=== PATIENT | female | born 1965 | race Caucasian/White ===

== ENCOUNTER 2021-06-27 10:20 | Inpatient (IN) | payer OTHER ==
[~2021-06-27] VITALS: Ht 160 cm; Wt 112.5 kg
--- NOTE | ~2021-06-27 | OR ---
[facility] [address], [place] [address] Draft DATE OF OPERATION: 06/27/2021 SURGEON: Sparkle Santana MD PREOPERATIVE DIAGNOSES: 1. Generalized peritonitis and small bowel obstruction. 2. Morbid obesity and history of bariatric procedure 1983. POSTOPERATIVE DIAGNOSES: 1. Generalized abdominal peritonitis with inflammatory fluid and without obvious discrete small bowel obstruction. A small web of segment of small bowel likely related to incomplete obstructive changes. 2. Upper abdominal adhesions and upper abdominal inflammatory fluid changes; no evidence of perforated viscus. 3. Chronic and subacute cholecystitis. 4. Chronic appendicitis. PROCEDURES: 1. Exploratory laparotomy with lysis of upper abdominal adhesions and full evaluation of upper gastrointestinal tract for perforation. 2. Open cholecystectomy. 3. Segmental small bowel resection with end-to-end enteroenterostomy. 4. Appendectomy. 5. Peritoneal lavage with placement of drain. ANESTHESIA: General endotracheal, Uche Kothari CRNA. PREPRESS OPERATOR: Yesenia Schumacher RN. INDICATION: This 56-year-old morbidly obese, white woman presented to the emergency room late in the day and evaluated by Dr. Mcghee with severe abdominal pain dominantly located in the epigastric area. She initially was thought to have cholecystitis. A gallbladder ultrasound was performed, which did not show stones or obvious thickening. Notably, she had a bariatric operation in 1983, which was initially reported as a Teja-en-Y gastric bypass and later thought more likely to be a vertical banded gastroplasty. This was by Dr. Konstantin Moncada in [facility]. PATIENT NAME: CARL ACEVEDO OPERATIVE REPORT DATE OF : 69 REPORT #: [id number] PHYSICIAN: SPARKLE SANTANA MD PCP: OTHER PCP REPORT IS CONFIDENTIAL AND NOT TO BE RELEASED WITHOUT AUTHORIZATION [facility] [address], [place] [address] Draft Her evaluation showed a slightly elevated alkaline phosphatase, normal liver enzymes otherwise and white count elevated at 12.6. Clinical examination shows her to be generally tender throughout. A CT scan was performed, which showed numerous clips in the GE junction area and no evidence of Teja limb to suggest gastric bypass proper. She did have dilated loops of small bowel highly suggestive of small bowel obstruction and peritoneal fluid dominantly in the upper abdomen. On the basis of these findings and the ambiguity of her previous bariatric operation, I have recommended exploration without delay on the possibility of a closed loop obstruction if in fact she does have a bariatric procedure at risk for that. She and her family (mother and sister) understands the risks of bleeding, infection, need for other indicated procedures, and other unforeseen complications related to operation and wished to proceed. FINDINGS: Upon opening of the midline laparotomy incision, considerable amount of inflammatory fluid was noted. There was no sign of bile staining per se, and there was no adverse odor, but marked inflammatory fluid was noted. Cultures were obtained. The Gram stain was stat and was reported as no organisms. Inflammatory fluid was noted throughout the abdomen, particularly in the upper abdomen. Exploration of the upper aspect defined the anatomy most likely consistent with vertical banded gastroplasty after all. Dense adhesions in the lesser sac area were noted. The stomach was able to be evaluated reasonably well in the GE junction area. There was no sign of esophageal or proximal gastric perforation, though initially I thought most probable finding would be perforated ulcer of some type. The duodenum was evaluated and found to be without sign of perforation. Insufflation of the stomach through the nasogastric tube submerged in saline showed no sign of air leak bubble or other issue. She had an acutely inflamed gallbladder, which was excised and when open, showed fine bits of cholesterol debris adherent to the gallbladder wall. Cholangiogram was not performed. The liver itself was normal. The small bowel was run from the ligament of Treitz to the terminal ileum, had no sign of perforation, but did have a constricting web in the distal two-thirds, which was durable over time and on that basis was resected. Once opened, it did not have sign of actual neoplasm proper. Palpation of the pelvic organs showed a somewhat atretic uterus. No sign of adnexal mass. The colon was normal throughout. The terminal ileum was normal. The appendix had chronic inflammatory change possibly secondary to the inflammatory process within the abdomen and appendectomy was performed as well. DESCRIPTION OF PROCEDURE: The patient was brought to the operating room, given a general endotracheal anesthetic. Preoperative antibiotic, meropenem had been given. Sequential compression device stockings used and heparin subcutaneously administered. A Zapata catheter was placed. PATIENT NAME: CARL ACEVEDO OPERATIVE REPORT DATE OF : 69 REPORT #: [id number] PHYSICIAN: SPARKLE SANTANA MD PCP: OTHER PCP REPORT IS CONFIDENTIAL AND NOT TO BE RELEASED WITHOUT AUTHORIZATION [facility] [address], [place] [address] Draft The abdomen was prepared with a chlorhexidine solution and draped sterilely. The previous upper midline incision was incised. Dissection carried through obese abdominal pannus encountering the midline fascia, which was incised and the abdomen entered. Immediately noted was a considerable amount of turbid and inflammatory fluid. Swabs were taken for both aerobes and anaerobes and stat Gram stain. The stat Gram stain later showed no evidence of organisms. The omentum was somewhat adherent to the anterior abdominal wall, was taken down with meticulous electrocautery dissection allowing for entry to the abdomen. The small bowel was eviscerated from the ligament of Treitz to the terminal ilium showing no sign of transition point of obstruction. The proximal bowel was somewhat more dilated. It was later to be more fully examined. The upper abdomen had the most inflammatory fluid, although was not bilious in color. Concern was maintained this may represent perforated ulcer. Examination of the lesser sac showed fusion of the left lateral segment of liver over the stomach itself. A nasogastric tube was in place. The fused liver was freed from the lesser sac of this stomach largely, but was so dense infused. It was deemed unlikely that a perforated ulcer would manifest in this way. Examination beneath the transverse mesocolon showed no sign of abscess or problem in this area. Attention was turned towards the right side of the abdomen in the upper aspect. The duodenum was identified and found to have no sign of perforation. The gallbladder was somewhat adherent to surrounding structures and although not severely acutely inflamed, was chronically inflamed, was dissected free from the surrounding tissue. A Bookwalter retractor was affixed to the table to allow for self-retention. The round ligament was freed from the anterior abdominal wall. The liver was palpably normal. Inflammatory fluid around it was suctioned free. It became clear that the original diagnosis of small bowel obstruction was certainly not the case. Careful inspection of the upper GI tract showed no sign of actual ulcer or enteric leakage. The nasogastric tube was manipulated into place and insufflated with air with the upper abdomen submerged in saline. Showed nice sign of air leak or bubble or other problem. Notably, the fundus of the stomach was free from the upper aspect and the spleen was normal as well. The lower aspect of the esophagus could easily be palpated and examined and showed no sign of perforation nor did the proximal stomach. It was deemed advisable to do cholecystectomy as that might be the underlying source of her distress. A ring clamp was applied to the gallbladder and the gallbladder was dissected free from the liver with electrocautery. The infundibulum as well dissected free. The cystic duct was secured with a tonsil clamp and secured with 0 silk tie. The gallbladder was opened on the back table and found to have chronic inflammatory changes and gallbladder debris. There were no well-formed stones, however. PATIENT NAME: CARL ACEVEDO OPERATIVE REPORT DATE OF : 69 REPORT #: [id number] PHYSICIAN: SPARKLE SANTANA MD PCP: OTHER PCP REPORT IS CONFIDENTIAL AND NOT TO BE RELEASED WITHOUT AUTHORIZATION [facility] [address], [place] [address] Draft Irrigation was undertaken and attention turned towards the small bowel. The small bowel was run from the ligament of Treitz distalward to assess for occult perforation or other similar problem in the distal two-thirds of the bowel with a circumferential thickening of the bowel. This did have some proximal dilation associated with it. This area was marked with a suture to be examined later. Further examination downstream from this showed minimal amount of creeping fat in one area, but no sign of inflammatory bowel disease otherwise. The terminal ileum was identified by the antimesenteric fat pad of tree. This allowed for delivery of a relatively mobile cecum. There was no sign of palpable lesion in the cecum or right colon. The appendix appeared to have inflammatory change, probably secondary to the underlying process. Appendectomy was performed by securing the mesentery of the appendix, dividing it and securing it with 0 silk tie. The base of the appendix was crushed and milked distally and the crush dayton secured with a 3-0 Vicryl tie. The appendix was amputated. The stump cauterized and inverted with a Z-stitch of 3-0 silk suture. Irrigation was undertaken throughout the abdominal cavity with warm irrigation fluid. Further inspection was undertaken showing no other abnormalities could be identified. Through a left upper quadrant stab incision, a 7 mm flat Rafi drain was placed into the upper abdomen extending from the left subhepatic space extending across the lesser sac and near the area of prior excision of the gallbladder. Pelvic examination by palpation revealed somewhat atretic uterus and no evidence of adnexal structure of concern. The sigmoid did not appear to be inflamed particularly. There was no neoplasm within it. Irrigation was undertaken more fully. The omentum replaced over the abdominal contents and attention turned towards closure. The midline fascia was reapproximated with running bidirectional #1 PDS suture. The subcutaneous space was irrigated and the skin closed with running subcuticular 3-0 Vicryl. Steri-Strips were applied as was an Acticoat dressing. Drains attached to bulb suction. The patient tolerated the procedure well. Blood loss was less than 100. Sponge, needle, and instrument counts reported as correct x3. MD MINDA Batista/JANAY /[id number] PATIENT NAME: CARL ACEVEDO Liz OPERATIVE REPORT DATE OF : 69 REPORT #: [id number] PHYSICIAN: SPARKLE SANTANA MD PCP: OTHER PCP REPORT IS CONFIDENTIAL AND NOT TO BE RELEASED WITHOUT AUTHORIZATION [address] [place] [address] Draft cc: Dr. Taz Copies: ~ PATIENT NAME: CARL ACEVEDO OPERATIVE REPORT DATE OF : 69 REPORT #: [id number] PHYSICIAN: SPARKLE SANTANA MD PCP: OTHER PCP REPORT IS CONFIDENTIAL AND NOT TO BE RELEASED WITHOUT AUTHORIZATION
[2021-06-27] MEDS ORDERED: TOPIRAMATE25 MG PO (10:44)
[2021-06-27] MEDS ORDERED: OMEPRAZOLE40 MG PO (10:44)
--- NOTE | 2021-06-27 21:55 | NUR ---
Pt arrived via bed from PACU, drowsy, opens eyes and nods to questions. On 2LNC not chronic, post op, L NGT patent w scant amount of reddish/brown discharge. to ILWS, abd large R abd Opticot dressing, MARY w sanguineous drainage. TERA.F?C in place. emptied right before being transferred to Med surg floor. not chronic SCDS in place. warm blanket given. IVF started. Family in room
--- NOTE | 2021-06-27 22:11 | NUR ---
06/27/212210 DEEDEE CALDERON 2036 PATIENT INTO PACU, AIRWAY IN PLACE 10 L MASK, PATIENT BREATHING EVEN AND REGULAR. MIDLINE SURGICAL SITE, STERI STRIPS AND ACTICOAT IN PLACE, C/D/I. MARY DRAIN TO UPPER LEFT QUADRANT, APPERS TO HAVE RED OUTPUT. 2044 PATIENT OPENS EYES TO VERBAL STIMULI, PATIENT ABLE TO SELF REMOVE ORAL AIRWAY. AWAKE ON AND OFF, TITRATED OXYGEN TO 4L MASK. PATIENT ATTEMPTING TO RUB EYES, REDIRECTED HANDS. 2049 PATIENT AWAKE ON AND OFF, TITRATED TO ROOM AIR. KEPT ENCOURAGEING PATIENT TO COUGH AND DEEP BREATHE. OXYGEN SATURATION APPEARS TO DECREASE TO 89% WHEN SNORING. APPLIED 2L NC OXYGEN SATURATION INCREASED TO 98% PATIENT BREATHING REGULAR AND EVEN RR 16. PATIENT APPEARS DROWSY. PATIENT VERBALIZES NO PAIN OR NAUSEA. DRESSING C/D/I. 2109 PATIENT APPEARS DROWSY, SATURATION 98% ON 2L NC. DRESSING C/D/I EMPTIED 20 ML OF RED OUTPUT FROM MARY. DRAINED 50 ML OF CLEAR YELLOW URINE FROM KIMBALL CATHETER. 2119 PATIENT TRANSFERED IN MEDICAL BED TO MED-SURG ROOM 122 PROVIDED REPORT TO HAL RN. PATIENT AWAKE ON AND OFF. AWAKES EASILY TO VERBAL STIMULI, PATIENT REPORTS NO PAIN OR NAUSEA. VSS WNL. DRESSING TO MIDLINE INCISION C/S/I. 2L NC, CONTINUIOUS [address] ANSWERED ALL QUESTIONS AND CONCERNS. HAL TO RESUME CARE.
--- NOTE | 2021-06-27 22:15 | NUR ---
PT CALL LIGHT ON, PT FAMILY LEFT THIS ENGINEERING TECHNICAL SPECIALIST PT WAS NAUSOUS, IN TO CHECK ON PT, LET THEM KNOW THE RN WAS CHECKING THE eMAR, SET OF POST OP VS DONE WITH RN
--- NOTE | 2021-06-27 22:36 | NUR ---
Pt more awake, o2 2lnc. LNGT to LIWS, draining scant amont of red/brown colored. abd R side dressing intact, MARY w sanguineous scant drainage. f/c patent.
--- NOTE | 2021-06-27 23:25 | NUR ---
more awake, NGT patent, abd dressing w/o changes, shakila patent. f/c patent, scds in place. NPO, oral care done. Merren infusing w/o problems O2 2L post op, CPOX at bedside
--- NOTE | 2021-06-28 00:36 | NUR ---
AWAKES EASILY, NO C/OPAIN OR N/V. ON 2L O2 NC, POST OP, WILL DC IN AM. CPOX AT BEDSIDE PER POST OP, L NGT PATENT TO LIWS, DRAINING DARKRED/BROWN. ABD TENDER, NOT PASSING GAS. F/C DRAINING SMALL AMOUNTS OF CLEAR URINE. SCDS INPLACE, IVF INFUSING W/O PROBLEMS.
--- NOTE | 2021-06-28 00:50 | NUR ---
PT C/O 7/10 ABD PAIN, AWAKE, ALERT AND ORIENTED. MEDICTED WITH DILAUDID 0.5MG IV. MOUTH CARE DONE.
--- NOTE | 2021-06-28 02:00 | NUR ---
IN TO ASSIST RN WITH 2AM VITALS, KIMBALL EMPTIED, LIZTHER HAS ARRIVED TO PTs RM, NO FURTHER NEEDS AT THIS TIME
--- NOTE | 2021-06-28 02:30 | NUR ---
C/O FEELING NAUSEATED, MEDICATED WITH PHENERGAN 12.5MG IV. FAMILY AT BEDSIDE
--- NOTE | 2021-06-28 06:14 | NUR ---
Pt out to edge of bed, stood up and walked a few steps toward the HOB, tolerated well, was medicated prior to. O2 weaned off, on room air at this time, lungs clear dim at bases. LNGT patent to LIWS, draining small amount of brown/green colored drainage.distant TERA, not passing gas yet, not burping. R abd opticot in place, MARY with ss drainage. f/c patent, draining QS urine, SCDs in place. Was medicated 2X with Dilaudid 0.5mg IV per abd pain, effective, medicated with Phenergan 12.5mg IV per c/o n/w, no emesis, effective. helped with assessments, alert and oriented, family in room
--- NOTE | 2021-06-28 06:32 | NUR ---
pt ok to give report to mother, report given to mother Karen.
--- NOTE | 2021-06-28 07:29 | NUR ---
report recieved from [employer] food shift supervisor RN, pt resting in bed, call light within reach, ng to low intermitten suction, room air, cpox on at bedside 97% on room air respirations evene and nonlabored, incision cdi, no needs at the moment
--- NOTE | 2021-06-28 09:15 | NUR ---
RN in room to do morning assessment and meciations, pt awake and alert, on room air, states pain is 6/10 prn IV tylenol administered,incision CDI, abd soft non distended, education provided on IS, dr Blackburn stopped in pt room ok to have ice chips, NG remains intact to low intermitten suction , plan to get up to chair post pain medications. call light within reach , no other needs at the moment.
--- NOTE | 2021-06-28 10:13 | NUR ---
VITALS AND I&OS CHARTED. NG IN PLACE. KIMBALL AND MARY EMPTIED. PATIENT AMBULATED SUMMERS WITH RN AND STUDENT. LINENS CHANGED AND PATINET NOW UP IN CHAIR. DAUGHTER IN ROOM.
--- NOTE | 2021-06-28 10:18 | NUR ---
PT ABLE TO AMBULATE IN SUMMERS, WALKED DOWN THE SUMMERS AND BACK TOLERATED WELL, SITTING UP ON CHAIR, SCDS BACK IN PLACE NO OTHER NEEDS AT THE MOMENT
--- NOTE | 2021-06-28 12:25 | NUR ---
RN IN ROOM TO ROUND ON PT, SITTING UP IN THE CHAIR, COMPLAINGING OF PAIN /10, PRN DILAUDID PROVIDED,IV RATE CHANGED PER ORDER, REQUESTING TO GO ON ANOTHER WALK AFTER PAIN MEDS KICK IN. N
--- NOTE | 2021-06-28 12:45 | NUR ---
PT ABLE TO AMBULATE IN SUMMERS FULL LAP AROUND UNIT, SBA, TOLERATED WEEL. REQUEST TO LAY IN BED FOR A LITTLE ASSISTED BACK TO BED NO OTHER NEEDS.
--- NOTE | 2021-06-28 13:51 | NUR ---
PATIENT AWAKE IN BED, FAMILY IN ROOM. VITALS AND I&OS CHARTED. KIMBALL AND MARY EMPTIED. CALL LIGHT IN EASY REACH, NO OTHER NEEDS AT THIS TIME
--- NOTE | 2021-06-28 14:32 | NUR ---
RN IN ROOM TO DO IV ABX, PT RESTING IN BED, NO NEEDS AT THE MOMENT, DRESSING ON INCISION REMAINS INTACT, NO GAS PASSING REPORTED BY PT.
--- NOTE | 2021-06-28 16:23 | NUR ---
Arnav got out of bed to ambulate, arnav walked 1 short round around the [facility] adelina unit.
--- NOTE | 2021-06-28 18:00 | NUR ---
RN IN ROOM RO ADMINISTER PAIN MEDICATIONS STATES PAIN 09/29, I&OS DONE, 250 ML OUT OF NG 2 CUPS OF ICE CHIPS GIVEN, KIMBALL EMPTIED AND MARY DRAIN 10CC. NO OTHER NEEDS
--- NOTE | 2021-06-28 20:42 | NUR ---
PT AWAKE, HOB ELEVATED, LNARE NGT PATENT DRAINING BROWNISH DISCHARGE. ABD SOFT, TENDER TERA, R ABD OPTICOT IN PLACE, MARY POTENT W SS DRAINAGE. IVF INFUSING LAC, ELEVATED WITH PILLOWS, BRUISING HEALING. SCDS ON, L ANKLE 1+ EDEMA, ELEVATED, ALERT AND ORINETED, C.O ABD PAIN, MEDICATED IWTH DILAUDID 0.5MG, COOP
--- NOTE | 2021-06-28 20:50 | NUR ---
in to get i&os, quinones emptied, no further needs
--- NOTE | 2021-06-28 22:24 | NUR ---
CEPACOL ANAILSA GIVEN
--- NOTE | 2021-06-29 00:10 | NUR ---
C/O LALY IV SITE HURTING. IV STOPPED, MERREN INFUSING. IV DC'D, WARM COMPRESS STARTED. COOPERATIVE WITH RESTARTING ANOTHER IV SITE. L NARE NGT TO LIWS DRAINING BROWNIGH THICK DRAINAGE. MARY PATENT. DRESSING R ABD , F/C PATENT, SCDS IN PLACE. NO C/O PAIN AT THIS TIME
--- NOTE | 2021-06-29 03:45 | NUR ---
resting, hob elevated ngt , f/c patent. ivf infusing. scds in place, ice chips at bedside
--- NOTE | 2021-06-29 04:10 | NUR ---
iv pump alarming, in to get vs, quinones emptied, rn in rm, no further needs at this time
--- NOTE | 2021-06-29 04:18 | NUR ---
medicated with Dilaudid 0.5mg c/o abd pain. lozengers for sore throat. ngt patent, ivf infusing, f/c patent, scds on
--- NOTE | 2021-06-29 04:43 | NUR ---
PT ON ROOM AIR, LUNGS CLEAR, L NARE NGT PATENT DRAINING BROWN COLORED THICK DRAINAGE. ABD SOFT TERA, PATRICK PASSING GAS. R ABD VERTICAL OPTICOT DRESSING IN PLACE, MARY MID LOW ABD WITH OLD DRAINAGE. PATENT DRAINING SS DRAINAGE. F/C PATENT, DRAINING CLEAR YELLOW URINE. SCDS IN PLACE, IV INFILTRATED LALY RESTARTED R ARM, IVF INFUSING W/O PROBLEMS, NO C/OA DVERSE REACTION TO IV ABX. HAS BEEN MEDICATED WITH DILAUDID 0.5MG 3X PER ABD PAIN, AND CEPACOL LOZENGERS PER C/O SORE THROAT, EFFECTIVE, HELPED WITH REPOSITIONING IN BED. PLEASANT AND COOPERATIVE. TOLERATING ICE CHIPS, NO EMESIS
--- NOTE | 2021-06-29 05:46 | NUR ---
PT C/O ABD PAIN 09/29, MEDICATED WITH DILAUDID 0.5MG IV
--- NOTE | 2021-06-29 07:24 | NUR ---
Patient awake resting in bed, no distress. Patient reports he slept well last night. Zapata intact/patent, urine sammie colored. Patient denies needs at this time. Personal supplies and call light within reach.
--- NOTE | 2021-06-29 07:36 | NUR ---
Patient in bed awake, no distress. NG to LIWS, scant light brown drainage noted in tubing. Patient reports her pain is tolerable at this time, no flatus passed as of yet per pt. Hypoactive bowel tones x4 quadrants, soft abd. MARY intact/patent, to bulb suction, scant sarosang drainage in bulb. Patient has no needs at this time.
--- NOTE | 2021-06-29 10:01 | NUR ---
Patient awake, a&ox4, no acute distress noted. Patient walked with this nurse in hallway, tolerated well SBA. Admin dilaudid 0.5mg IV and phenergan 12.5mg IV for reports of abdominal pain and nausea. Abdomen is soft, midline abd incision dressing is CDI. MARY intact/patent with sarosang drainage. Patient reports she is doing well this morning. Phenergan admin as pt states the dilaudid makes her feel nauseated, not that she is consistantly nauseated.
--- NOTE | 2021-06-29 11:46 | NUR ---
Patient sitting up in chair visiting with family, no distress. Patient denies needs. Call light within reach.
--- NOTE | 2021-06-29 12:17 | NUR ---
PT REQUESTING HOME DOSE OF TOPERIMATE [address] BROWN. ORDER PLACED.
--- NOTE | 2021-06-29 14:45 | NUR ---
HANDOFF REPORT RECEIVED FROM TRAVIS LOPEZ.
--- NOTE | 2021-06-29 15:34 | NUR ---
PT ASSISTED TO BATHROOM, VOIDED 700ML. PT THEN WALKED IN SUMMERS, COMPLETED 1 LAP AROUND NURSING FLOOR. PT NOW RESTING IN BED, DENIES OTHER NEEDS AT THIS TIME.
--- NOTE | 2021-06-29 16:37 | NUR ---
PATIENT CALLED. HELPED PATIENT WITH IV POLE TO THE BATHROOM. THAN WE WENT FOR A WALK AROUND MED SURG.
--- NOTE | 2021-06-29 16:55 | NUR ---
PT WITH COMPLAIN T OF HEADACHE, TO EARLY TO GIVE TYLENOL PT JUST RECEIVED IT AT 1400, PT PROVIDED WITH ICE PACK. PT ASSISTED TO BATHROOM, VOIDED, ASSISTED BACK TO BED.
--- NOTE | 2021-06-29 17:56 | NUR ---
PT ASSISTED TO BATHROOM AND BACK TO BED. PT REPORT FEELING ABD MOVEMENTS, BOWEL TONES ACTIVE, NO FLATUS YET. DRESSING TO ABD, CDI. PT REPORTS HEADACHE IS PRESENT BUT BETTER. PT DENIES OTHER NEEDS AT THIS TIME.
--- NOTE | 2021-06-29 18:20 | NUR ---
PT COMPLAINT OF HEADAHCE, REQUESTING TOPOMAX TO BE GIVEN EARLY. DR. SANTANA CALLED, VERBAL ORDER TO GIVE TOPOMAX NOW. ADDITIONALLY DISCUSSED URINE OUTPUT, ORDER TO DECREASE IV FLUIDS TO 75ML/HR.
--- NOTE | 2021-06-29 19:16 | NUR ---
PT STATES SHE TAKES TOPOMAX 50MG HS, CURRENT ORDER FRO TOPOMAX [address] HS[address] DR[address] SANTANA CALLED, ORDERED TO INCREASE TO HOME DOSE OF TOPOMAX 50MG PO AND TO GIVE ADDITIONAL 25MG TONIGHT FOR TOTAL OF 50MG. PT HAVING FAMILY BRING HOME MED, DR. SANTANA OK TO GIVE HOME MED.
--- NOTE | 2021-06-29 23:40 | NUR ---
HAS BEEN UP TO THE BR TO VOID MULTIPLE TIMES. HAD ICE PACK FOR BEASLEY. STATES BEASLEY IS DULL AND TOLERABLE NOW. DENIES ANY UNMET NEEDS. SCD'S ON. ANTIBIOTIC INFUSING.
--- NOTE | 2021-06-30 02:32 | NUR ---
UP TO THE BR. STATES SHE HAS PASSED GAS TWICE. MARY DRAIN COMPRESSED. CALL LIGHT WITHIN REACH. DENIES ANY UNMET NEEDS
--- NOTE | 2021-06-30 06:30 | NUR ---
IV TYLENOL GIVEN ONCE FOR C/O BEASLEY AND ONCE FOR PAIN TO ABD. MARY STAYED COMPRESSED AND PT HAD SCD'S ON ALL THOUGHOUT THE SHIFT. PT STATES SHE HAD A BETTER NIGHT THAN THE PREVIOUS NIGHT.
--- NOTE | 2021-06-30 08:06 | NUR ---
Patient assisted to restroom at this time, SBA tolerating transfers well. Patient is on room air, respirations even and and non labored. Patient reports her pain is tolerable. Abd dressing is CDI. MARY intact/patent with sarosang draiange, to bulb suction. Patient reports she slept well, no nausea.
--- NOTE | 2021-06-30 10:11 | NUR ---
Admin dilaudid 0.5mg IV for reports of 6/10 abdominal pain.
--- NOTE | 2021-06-30 10:54 | NUR ---
Patient walked in hallway x2 laps, tolerated well.
--- NOTE | 2021-06-30 12:47 | NUR ---
Patient up in hallway walking with this RN, tolerated very well.
--- NOTE | 2021-06-30 13:22 | HP ---
[facility] [address], [place] [address] Signed ADMISSION DATE: 06/27/2021 PROBLEM: Acute abdomen with probable bowel obstruction, history of bariatric procedure. HISTORY OF PRESENT ILLNESS: This 56-year-old obese woman presents from [place], [place], accompanied by her mother and her sister. She has complaints of severe epigastric pain that began yesterday including nausea and vomiting that started approximately 9:30 yesterday. She had some episodes in the past, but not as significant. She describes the pain as 8/[address] Mcghee, emergency room physician. She was initially said to have had a Teja-en-Y gastric bypass [place] [address] Konstantin Moncada in the [facility]. Those records were long past available and not available now obviously. She was thought possibly to have biliary disease based on her presentation and a gallbladder ultrasound was performed, which showed no stones or thickening. On that basis, a CT scan was obtained of the abdomen. This showed surgical changes in the region of the upper portion of the stomach and dilated small bowel loops. IV contrast was not given nor was GI contrast. I reviewed the CT scan with the radiologist more fully. PAST SURGICAL HISTORY: Additionally includes kidney stone removal x2 and C-sections x3. She is postmenopausal. ALLERGIES: Include erythromycin, morphine, Tylenol (hallucinations in association with Vicodin), codeine, hydrocodone (hallucinations, and oxycodone), vomiting. MEDICATIONS: Include topiramate 25 mg daily and omeprazole 40 mg daily. REVIEW OF SYSTEMS: Denies any shortness of breath or chest pain. She has had no hematemesis or blood per rectum. Her pain is mostly in the epigastric and some in the left upper abdomen. She denies right upper abdominal pain currently. PHYSICAL EXAMINATION: GENERAL: A morbidly obese white woman, who looks to be in moderate discomfort. Electronically Signed By: SPARKLE SANTANA MD 06/30/21 1322 PATIENT NAME: CARL ACEVEDO HISTORY AND PHYSICAL DATE OF : 69 REPORT #: [id number] PHYSICIAN: SPARKLE SANTANA MD PCP: OTHER PCP REPORT IS CONFIDENTIAL AND NOT TO BE RELEASED WITHOUT AUTHORIZATION [facility] [address], [place] [address] Signed VITAL SIGNS: Weight is 108.86 kg. Her height is 5 feet 3 inches. BMI is 42.5. NECK: Trachea is midline. There is no jugular venous distention. HEENT: Mucous membranes are moist. CHEST: Clear. HEART: Regular without murmur. ABDOMEN: Rather obese. There is an upper midline incision that is well healed. There is no sign of hernia. Abdominal palpation reveals tenderness in the epigastric area, less so in the left upper quadrant. She does not have ascites. EXTREMITIES: Show no clubbing, cyanosis, or edema. LABORATORY DATA: [facility] after thorough review independently. Lab studies obtained showed a white count of 12.8, hematocrit 41.6, platelets 221,000. Chem profile is normal. Glucose 136. Liver enzymes with alkaline phosphatase slightly elevated at 117. Lipase 33. Urinalysis essentially normal. Serology with negative COVID test. ASSESSMENT: My initial data was that the patient had history of gastric bypass operation, but with further close discussion with her family, I think it more likely that she had a vertical banded gastroplasty. Careful review of the CT scan does not show a Teja limb despite the fact there is no GI contrast administered. She does have appearance of small bowel obstruction based on dilated loops of small bowel and decompression distally. This may be as simple as an adhesion related bowel obstruction. It is not entirely certain that she did not in fact have a Teja-en-Y gastric bypass, so I think it unlikely. A more common complication of vertical band gastroplasty of course is gastric outlet obstruction at the banded portion, but she does not seem to have dilated stomach. There is periduodenal and gastric fluid and although the gallbladder is not thought to be abnormal, she may have in fact cholecystitis secondarily or even as the primary problem. Mindful of the uncertainty as to her gastric anatomy from a bariatric procedure, I believe it more appropriate to proceed with operation and remedy the obstruction whatever its cause. The typical and dreaded internal hernia from a transmesenteric hernia from Teja-en-Y gastric bypass is a possibility, though less likely. In any case, remedy of the bowel obstruction or other pathologic process will be undertaken without delay. The risks of bleeding, infection, misdiagnosis, failure of diagnosis, and of course, need for other indicated procedures, not currently known was reviewed in detail with the patient, her mother, and her sister. They all agree and wished to proceed. Electronically Signed By: SPARKLE SANTANA MD 06/30/21 1322 PATIENT NAME: CARL ACEVEDO HISTORY AND PHYSICAL DATE OF : 69 REPORT #: [id number] PHYSICIAN: SPARKLE SANTANA MD PCP: OTHER PCP REPORT IS CONFIDENTIAL AND NOT TO BE RELEASED WITHOUT AUTHORIZATION [address] [address] Signed MD MINDA Batista/MODL /[id number] Copies: ~ Electronically Signed By: SPARKLE SANTANA MD 06/30/21 1322 PATIENT NAME: CARL ACEVEDO Liz HISTORY AND PHYSICAL DATE OF : 69 REPORT #: [id number] PHYSICIAN: SPARKLE SANTANA MD PCP: OTHER PCP REPORT IS CONFIDENTIAL AND NOT TO BE RELEASED WITHOUT AUTHORIZATION
--- NOTE | 2021-06-30 14:30 | NUR ---
Patient in shower. Scheduled abx will be started once she is out of shower.
--- NOTE | 2021-06-30 15:31 | NUR ---
One tab Codeine with tylenol admin (tylenol #3) for reports of 5/10 abd pain.
--- NOTE | 2021-06-30 18:15 | NUR ---
One tab Codeine with tylenol admin (tylenol #3) for reports of 5/10 abd pain. Patient reports she does NOT have an allergy to codeine.
--- NOTE | 2021-06-30 19:30 | NUR ---
PATIENT AND I WALKED TWO TIMES ON MED SURG. AND THE NURSE WALKED WITH HER THE OTHER TWO TIMES.
--- NOTE | 2021-06-30 19:30 | NUR ---
BEDSIDE REPORT RECEIVED FROM OFFGOING RNTRAVIS. PT DENIES NEEDS AT THIS TIME. CALL LIGHT IN REACH.
--- NOTE | 2021-06-30 21:42 | NUR ---
V/S AND I&O'S DONE. PATIENT WENT TO THE BATHROOM. PATIENT VOIDED 200 ML. EMPTIED MARY 10ML. PATIENT IS BACK IN BED. SCD'S ON. NO OTHER CARE NEEDS AT THIS TIME.
--- NOTE | 2021-06-30 22:32 | NUR ---
PT ASSESSMENT COMPLETE. PT RATES PAIN 4/10 TO ABD WHILE LAYING IN BED, REPORTS INCREASED PAIN WITH MOVEMENT. PT PATRICK SOB OR NAUSEA. BT'S HYPO, ABD NON TENDER TO PALPATION. PT REPORTS PASSING FLATUS, DENIES BM YET. MIDLINE INCISION WITH STERISTRIPS, SMALL AMOUNT OF DRIED DRAINAGE PRESENT. MARY TO LLW WITH SMALL AMOUNT OF SEROSANG DRAINAGE PRESENT. IV TO R HAND FLUSHED, WNL, PATENT. IVF AND SCHEDULED MED INFUSING ORDERED. PT UP TO BATHROOM AND BACK TO BED WITH SBA. TOLERATED WELL. PT TALKATIVE ABOUT HER FAMILY. THANKFUL FOR ALL CARES. DENIES NEEDS AT THIS TIME. CALL LIGHT IN REACH.
--- NOTE | 2021-07-01 00:29 | NUR ---
PT ROUNDING. PRN PAIN MEDCIATION ADMINISTERED PER PT REQUEST. PT RATES PAIN 4/10 TO ABD. PT UP TO BATHROOM AND BACK TO BED WITH SBA. TOLERATED WELL. DENIES FURTHER NEEDS. CALL LIGHT IN REACH.
--- NOTE | 2021-07-01 01:41 | NUR ---
FURNITURE DIPPER TO ROOM FOR IV PUMP ALARMING. PT DECLINES PAIN AT THIS TIME, DENIES NEEDS. CALL LIGHT IN REACH.
--- NOTE | 2021-07-01 04:37 | NUR ---
PT ASSESSMENT COMPLETE. PT RESTING IN BED DRINKING TEA. STATES THAT SHE PLANS TO GO BACK TO SLEEP, JUST WANTED SOMETHING HOT TO DRINK. PT REPORTS PAIN WELL CONTROLLED, CONTINUES TO RATE 4/10. DENIES SOB OR NAUSEA. BT'S ACTIVE. PT AGREES SHE CAN FEEL HER STOMACH "RUMBLING". FLATUS, NO BM. IVF INFUSING ORDERED. PT DENIES FURTHER NEEDS AT THIS TIME. LITA ASCENCIOIGHT IN REACH.
--- NOTE | 2021-07-01 05:52 | NUR ---
FINANCIAL ACCOUNTING ANALYST TO ROOM FOR SCHEDULED MEDICATION ADMIN. PT STATES THAT PAIN IS WELL CONTROLLED AT THIS TIME. PT UP TO BATHROOM AND BACK TO BED WITH SBA. TOLERATED WELL. VS OBTAINED, WNL. PT DENIES FURTHER NEEDS. CALL LIGHT IN REACH.
--- NOTE | 2021-07-01 07:07 | NUR ---
BEDSIDE HANDOFF REPORT RECEIVED FROM GENERAL OPERATIONS MANAGER RN. PT RESTINGIN BED, TALKING ON THE PHONE. PT DENIES NEEDS AT THIS TIME.
--- NOTE | 2021-07-01 08:33 | NUR ---
PATIENT UP TO BATHROOM THEN AMBULATED 1 LAP IN [facility]. PATIENT BACK TO BED AT THIS TIME AND STATES SHE IS FEELING DIZZY, RN NOTIFIED. CALL LIGHT IN REACH. LINENS CHANGED. NO FURTHER NEEDS AT THIS TIME.
--- NOTE | 2021-07-01 09:13 | NUR ---
PATIENT GIVEN 12.5MG OF IV PHENERGAN FOR NAUSEA.
--- NOTE | 2021-07-01 09:45 | NUR ---
PT RESTING IN BED. PT STATES PAIN IS TOLERABLE 4/10, DENIES NEED FOR MEDICATION AT THIS TIME. PT ON ROOM AIR, LUNG SOUNDS CLEAR, DENIES SOB. PT WITH NAUSEA, RECENTLY RECEIVED PHENERGAN, IMPROVING, BOWEL TONES ACTIVE, ABD SOFT. PT WITH MIDLINE INCISION, STERISTRIPS IN PLACE, OLD DRAINAGE NOTED. MARY DRAIN TO LEFT ABD, SMALL AMOUNT OF SEROSANGUINOUS DRAINAGE IN BULB. PT WALKED IN [place] THIS MORNING, REPORT OF DIZZINESS WHEN WALKING, VS WNL, PT INSTRUCTED TO CALL FOR ASSISTANCE TO BATHROOM. IV FLUIDS INFUSING AT 75ML/HR. CMS INTACT, WITHOUT EDEMA, SCDS IN PLACE. DISCUSSED PLAN OF CARE FOR THE DAY, PT DENIES OTHER NEEDS AT THIS TIME.
--- NOTE | 2021-07-01 10:02 | NUR ---
WALKED WITH PATIENT TO THE BATHROOM, SHE DID WELL, VOIDED 400. SHE'S BACK IN BED AND CALL LIGHT IN REACH, NO FURTHER NEEDS.
--- NOTE | 2021-07-01 10:40 | NUR ---
It was my opportunity to visit with Isabel this morning regarding her care while here in the [facility]. Upon arrival into the room, Isabel does c/o of some nausea but states that the nurses have medicated her with phenergan. She then requests to use the restroom, assisted out of bed secondary to IV pump and tubing, patient is able to ambulate independantly with a steady gate. She is also able to get on and off the commode and do self care post using the restroom inedependantly. She is awake/aler/and oriented to person place and time. She answers questions appropriately. She is also able to use the call light and adjust her bed independantly. IV is patent without s/s of redness or infiltration, pt also denies pain at the site of her IV. Isabel states that her care has been wonderful here in the hospital, she states this is true for the ED, during her surgical process, and now here on the [facility] floor. She denies any complaints or concerns and states that her questions are being answered. She states the physician and nurses have been explaining her treatment plan to her, and she denies questions regarding her current treatment and progression of care. Isabel denies questions at this time.
--- NOTE | 2021-07-01 12:45 | NUR ---
PT ASSISTED TO BATHROOM, VOIDED 900ML. PT THEN SBA TO WALK IN [place], COMPLETED 2 LAPS AND IS NOW SITTING IN CHAIR. DAUGHTER AT BEDSIDE.
--- NOTE | 2021-07-01 14:10 | NUR ---
NILDA IS IN CHAIR VISITING WITH DAUGHTER. VITALS I&O CHARTED. NO FURTHER TASKS AT THIS TIME.
--- NOTE | 2021-07-01 14:50 | NUR ---
PT SITTING IN CHAIR. PT STATES PAIN IS TOLERABLE /10. PT CONTINUES TO REPORT FLATUS, BOWEL TONES ACTIVE, DENIES NAUSEA, REQUESTING MORE CHICKEN BROTH, PROVIDED. IV MERREM INFUSING. MARY DRAIN WITH SMALL AMOUNT OF SEROSANGUINOUS DRAINAGE. INCISION WITHOUT REDNESS, STERISTRIPS IN PLACE. PT VISITING WITH DAUGHTER, DENIES OTHER NEEDS AT THIS TIME.
--- NOTE | 2021-07-01 17:48 | NUR ---
PT ASSISTED TO BATHROOM AND THEN TO WALK IN [place], PT NOW RESTING IN BED. PT DENIES OTHER NEEDS AT THIS TIME.
--- NOTE | 2021-07-01 19:10 | NUR ---
BEDSIDE REPORT RECEIVED FROM OFFGOING RNPRISCILLA. PT RESTING IN BED WITH EYES CLOSED. CALL LIGHT IN REACH.
--- NOTE | 2021-07-01 19:45 | NUR ---
BATHROOM LIGHT ANSWERED. PATIENT IS BACK IN BED. SBA. SCD'S ON. NO OTHER NEEDS AT THIS TIME.
--- NOTE | 2021-07-01 20:55 | NUR ---
PT ASSESSMENT COMPLETE. PT REPORTS PAIN 4/10 TO ABD. STATES THAT THIS IS TOLERABLE, DENIES PAIN MEDCIATION AT THIS TIME. PT DENIES SOB OR NAUSEA. BT'S ACTIVE. ABD TENDER TO PALPATION. MIDLINE INCISION WITH SERISTRIPS, SMALL AMONT OF OLD DRY DRAINAGE PRESENT. IV FLUSHED WITH 10 ML NS, PATENT, WNL. IFV INFUSING ORDERED. PT DENIES FURTHER NEEDS AT THIS TIME. CALL LIGHT IN REACH.
--- NOTE | 2021-07-01 21:05 | NUR ---
PT UP TO BATHROOM AND BACK TO BED WITH SBA. PT REPORTS PAIN INCEASES TO 6/10 TO ABD WITH MOVEMENT, REQUESTS PRN PAIN MEDICATION, ADMINISTERED. DENIES FURTHER NEEDS AT THIS TIME. CALL LIGHT IN REACH.
--- NOTE | 2021-07-01 22:25 | NUR ---
HEADER SETUP OPERATOR TO ROOM FOR SCHEDULED ON AIR ANNOUNCER. PT STATES THAT PAIN IS RELIEVED BY PRN PAIN MED. PT UP TO BATHROOM AND BACK TO BED WITH SBA. TOLERATED WELL. DENIES FURTHER NEEDS AT THIS TIME. CALL LIGHT IN REACH.
--- NOTE | 2021-07-02 01:30 | NUR ---
PT ROUNDING. PT RESTING IN BED WITH EYES CLOSED. RESPIRATIONS EVEN AND UNLABORED. PT APPEARS TO BE SLEEPING. DOES NOT WAKE WHILE WRTIER AT BEDSIDE. CALL LIGHT IN REACH.
--- NOTE | 2021-07-02 04:10 | NUR ---
PT UTILIZES CALL LIGHT, REQUESTS TO USE THE BATHROOM. PT UP TO BATHROOM AND BACK TO BED WITH 1 PA TOLERATED WELL. PT REQUESTS PRN PAIN MEDICATION FOR 6/10 ABD PAIN, ADMINISTERED, SEE EMAR. PT ASSESSMENT COMPLETE. PT DENIES NAUSEA OR SOB. BT'S ACTIVE. ABD TENDER TO PALPATION. MIDLINE WITH SERISTRIPS, NO NEW DRAINAGE NOTED THIS ASSESSMENT. OLD MARY SITE TO [facility] WITH BANDAID, SMALL AMOUNT OF SHADOWING NOTED. PT REPORTS FLATUS, NO BM. IVF INFUSING ODERED. PT DENIES FURTHER NEEDS AT THIS TIME. CALL LIGHT IN REACH.
--- NOTE | 2021-07-02 10:00 | NUR ---
PT UP TO BATHROOM STANDBY ASSIST, PT TOLERATED ACTIVITY WELL, THEN UP TO RECLINER TO CONTINUE TO SNACK ON HER BREAKFAST TRAY.
--- NOTE | 2021-07-02 11:16 | NUR ---
IN TO DO VITALS. VITALS AND I&O'S CHARTED. PATIENT AMBULATED 1 LAP IN [place], [facility]. PATIENT NOW IN SHOWER, SHOWERING INDEPENDENTLY. LINENS CHNAGED. CALL LIGHT IN REACH. NO FURTHER NEEDS AT THIS TIME.
--- NOTE | 2021-07-02 11:22 | NUR ---
PT UP AMBULATING IN THE HALLS, SHE THEN WILL BE SET UP TO SHOWER PER HER REQUEST WITH DEAN OF BOYS ASSISTANCE
--- NOTE | 2021-07-02 11:49 | NUR ---
PT HAS SHOWERED AND IS NOW AMBULATING IN THE HALLS WITH DIVERSIFIED CROPS I FARMWORKER AT THIS TIME. PT REPORTS "I FEEL SOOO MUCH BETTER"
--- NOTE | 2021-07-02 12:16 | NUR ---
CHAPLAIN MEJIA MONTGOMERY IN TO VISIT PT AND GIVE HER A PRAYER SHAWL.
--- NOTE | 2021-07-02 13:27 | NUR ---
PT ALERT, ORIENTED AND RM ABLAZE WITH BEAUTIFUL KAMINSKI. PT HAD QUITE THE EXPENSIVE SURGERY, STRUGGLING WITH WHAT SHE FEELS IS HAPPENED SO QUICKLY. SPENT TIME ENCOURAGING PT. HAD PRAYER, GAVE GCleopatraPOST AND ÁNGEL.
--- NOTE | 2021-07-02 14:03 | NUR ---
PT AMBULATED IN [place] WITH STUDENT NURSE, PT REPORTS INCREASE PAIN AFTER AMBULATING. ICE PACK PROVIDED.
--- NOTE | 2021-07-02 14:44 | NUR ---
NILDA IS LAYING IN BED. I&O CHARTED VIATLS CHARTED. CALL LIGHT IN REACH. NO FURTHER TASKS AT THIS TIME.
--- NOTE | 2021-07-02 15:36 | NUR ---
SPOKE WITH GALVAN REGARDING PT WANTING TO TAKE PAIN MEDS 1 TAB Q3 RATHER THAN 2 Q6. OK'D ORDER.
--- NOTE | 2021-07-02 16:00 | NUR ---
Spoke with Isabel. She has just returned to bed. Feels she is doing ok. States concern as he work wants her to return to work by the 18th. 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 She is also the primary cg for her sister, she has had a stroke. She states her mom also assist, but she is 86. Isabel does the driving, shopping, etc. Pt encourged to let herself heal, and not return to work until she is ready. Also encourged pt to not leave the hospital to fast as she still needs help.
--- NOTE | 2021-07-02 16:30 | NUR ---
MARIANNE RN WITH CASE MANAGEMENT INTO TALK WITH PATIENT. PT JUST BACK TO BED AFTER AMBULATING INTO BATHROOM VOIDED 250ML CLEAR YELLOW URINE. SHE TOLERATED ACTIVITY WELL, SHE REPORTS PAIN IS MUCH IMPROVED, NOT INCREASED BOWEL TONE FROM THIS AM, SHE HAS FLATUS, NO BM YET. WROTE PAIN MANAGEMENT PLAN ON WHITE BOARD WITH TIMES FOR NEXT DOSES. PT ALSO REPORTS ICE PACK HELPED WITH PAIN, NEW ICE PACK PROVIDED.
--- NOTE | 2021-07-02 17:31 | NUR ---
PT REPORTS PAIN 4/10 ABD. PT REPORTS PAIN IS IMPROVING. SHE IS ALERT AND ORIENTED, SHE IS EATING APPLESAUCE WITH HER TYLENOL #3 PO PRN AT THIS TIME.
--- NOTE | 2021-07-02 17:46 | NUR ---
PT HAS AMBULATED 3 TIMES IN HALLS, SHE HAD SHOWER TODAY, AFTER ALL ACTIVITY PT FELT INCREASED PAIN SIGNIFICANT. PAIN MEDICATION ORDER ADJUSTED TO ALLOW PT TO HAVE ONE TAB TYLENOL #3 Q3 HOURS THIS HAS BEEN MORE EFFECTIVE. SHE IS NOW S/L, VOIDING Q.S., SCDS ON. SURGERY SITES WNL STERI STRIPS INTACT. NO NEW CONCERNS. SHE IS TOLERATING DIET WELL.
--- NOTE | 2021-07-02 19:45 | NUR ---
RECIEVED REPORT ON PATIENT FROM SHANICE LOPEZ. PATIENT IS ALERT AND ORIENTED. VSS. MIDLINE INCISION ASSESSED. CLEAN DRY AND INTACT. SMALL AMOUNT OF DRIED DRAINAGE ON STERI STRIPS NOTED. BANDAID OVER MARY DRAIN ASSESSED CLEAN DRY AND INTACT. SCD'S IN PLACE. FAMILY MEMBER AT BEDSIDE. CALL LIGHT WITHIN REACH.
--- NOTE | 2021-07-02 21:47 | NUR ---
PATIENT RESTING IN BED ALERT AND ORIENTED. VSS. PATIENT VOICED PAIN LEVEL 4. ADMINISTERED PRN PAIN MEDICATION. PATIENT DENIES NAUSEA. DRESSING REMAINS SAME INITIAL ASSESSMENT. BOWEL TONES PRESENT. SCD'S IN PLACE. CALL LIGHT WITHIN REACH.
--- NOTE | 2021-07-02 23:46 | NUR ---
PATIENT AWAKE AND ORIENTED. PATIENT STATED PAIN LEVEL WENT FROM 4 TO 5. PATIENT REQUESTED MORE ICE IN PACK FOR ABDOMEN. PATIENT DENIES NAUSEA. NO OTHER NEEDS VOICED AT THIS TIME. CALL LIGHT WITHIN REACH.
--- NOTE | 2021-07-03 00:14 | NUR ---
PATIENT IS RESTING WITH EYES CLOSED. ICE PACK IS ON UPPER ABDOMEN. CALL LIGHT WITHIN REACH.
--- NOTE | 2021-07-03 02:36 | NUR ---
PATIENT ALERT AND ORIENTED. PATIENT VOICED NEED TO USE THE RESTROOM. ASSESSED BOWEL SOUNDS. PATIENT VOICED PAIN 4-10. PRN PAIN MEDS ADMINISTERED. URINE HAT DUMPED. SCD'S IN PLACE. ICE WATER REFILLED. ICE PACK REFILLED. NO FURTHER NEEDS VOICED AT THIS TIME. CALL LIGHT WITHIN REACH.
--- NOTE | 2021-07-03 05:53 | NUR ---
PATIENT ALERT AND ORIENTED. VSS. ASSISITED IN UNPLUGGING SCD'S SO PATIENT COULD AMBULATE INDEPENDENTLY TO RESTROOM. RAMÍREZ WINKLER RN DUMPED VOID FROM HAT. PATIENT VOICED PAIN REAMINS AT A 4-10. ADMINITERED NPO MEDICATION FOR PAIN. ICE WATER REFILLED. ICE PACK REFILLED AND PROVIDED CLEAN DRY TOWEL TO WRAP ICE PACK IN. PROVIDED CRACKERS. NO FURTHER NEEDS VOICED AT THIS TIME. CALL LIGHT WITHIN REACH.
--- NOTE | 2021-07-03 06:36 | NUR ---
TENERNESS WITH PALPATIONS OF UPPER ABDOMEN. BOWEL TONES ARE ACTIVE THROUGHOUT X4. PATIENT HAS NOT HAD A BOWEL MOVEMENT SINCE 06/27/21. AMBULATES INDEPENDETELY IN HALLS AND TO THE RESTROOM. PATIENT TOLERATEING NORMAL DIET AND DENIES NAUSEA. BANDAGE OVER MARY INSERTION IS CLEAN DRY AND INTACT. STERI STRIPS MIDLINE SURGICAL SITE ARE DRY. PAIN MANAGEMENT WITH PO MEDS NEEDED EVERY THREE HOURS. SCD'S IN PLACE. ICE WATER AND CRACKERS WERE OFFERED THROUGHOUT THE NIGHT. USES CALL LIGHT APPROPRIATELY.
--- NOTE | 2021-07-03 07:39 | NUR ---
Patient resting in bed, eyes closed, respirations even and non labored. Patient has no notable distress. Personal supplies and call light within reach.
--- NOTE | 2021-07-03 07:59 | NUR ---
PAITENT IS UP IN CHAIR READY FOR MEAL. WHENT FOR A WALK AROUND THE UNIT. DID AM CARES, LINEN CHANGED. CALL LIGHT WITHIN REACH. NO FURTHER TASKS AT THIS TIME.
--- NOTE | 2021-07-03 09:25 | NUR ---
Patient awake in chair eating breakfast at this time, no distress. Patient reports she slept well last night. Midline abd incision is closed, healing well with steri strips intact. Notable bowel tones x4 quadrants noted, pt passing flatus. One tab of Tylenol #3 admin for reports of 5/10 abdominal pain. Patient denies needs at this time. Personal supplies and call light within reach.
--- NOTE | 2021-07-03 09:46 | NUR ---
NILDA IS UP IN CHAIR. NEW ICE PACK WAS GIVEN. VITALS AND I &O CHARTED. CALL LIGHT WITHIN REACH. NO FURTHER TASKS AT THIS TIME
--- NOTE | 2021-07-03 12:13 | NUR ---
Patient sitting up in chair resting, eyes closed, respirations even and non labored. Patient has no notable distress. Personal supplies and call light within reach.
--- NOTE | 2021-07-03 12:20 | NUR ---
Dr. Fowler rounded on patient. Patient likely to discharge tomorrow. Dr. Fowler to place order for Colace per his report.
--- NOTE | 2021-07-03 12:30 | NUR ---
Spoke with Isabel. She states she is doing well today. Could not sleep last night. Denies needs.
--- NOTE | 2021-07-03 13:59 | NUR ---
PT ALERT, ORIENTED AND SITTING UP IN BED JUST FINISHING A CALL. PT SAID SHE SLEPT WELL LAST NIGHT AND HOPES TO DC THURSDAY. PLEASANT CONVERSATION, HAD PRAYER WITH PT. WILL FOLLOW NEEDED
--- NOTE | 2021-07-03 15:00 | NUR ---
Pt states she is doing well, denies complaint.
--- NOTE | 2021-07-03 15:53 | NUR ---
Patient resting in bed, eyes closed, respirations even and non labored. Patient has no notable distress. Personal supplies and call light within reach.
--- NOTE | 2021-07-03 17:18 | NUR ---
Admin one tab of tylenol #3 for reports of 5/10 abdominal pain. Patient ambulated x1 lap with TRANSITIONAL LIVING SPECIALIST, tolerated very well.
--- NOTE | 2021-07-03 19:30 | NUR ---
RECEIVED REPORT FROM JESSICA JONES. PATIENT ALERT AND ORIENTED. PATIENT STATED PAIN LEVEL HAD DECREASED FROM 4. PATIENT BREATHS ARE EVEN AND UNLABORED. PATIENT QUESTIONED RETURN TO WORK. NOT OTHER NEEDS STATED AT THIS TIME. CALL LIGHT WITHIN REACH.
--- NOTE | 2021-07-03 21:25 | NUR ---
PATIENT ALERT AND ORIENTED. VSS. PATIENT DENIES NAUSEA AND STATES PAIN LEVEL HAS DECREASED TO 3-10. PATIENT DID REQUEST PAIN MEDICATION. PAIN MEDICATION ADMINISTERED PER ORDERS. STERI STRIPS AND BANDAID DRESSING REMAIN CLEAN DRY AND INTACT. LUNG SOUNDS ARE CLEAR AND BOWEL SOUNDS ARE ACTIVE THOUGHOUT X4. PATIENT AMBULATES INDEPENDENTLY TO RESTROOM. HAT WAS DUMPED. BREATHING IS EVEN AND UNLABORED. PATIENT REQUESTS LEAVING SCD'S OFF FOR NOW. ICE WATER AND ICE PACK REFILLED AND CRACKERS WERE PROVIDED. NO OTHER NEEDS VOICED AT THIS TIME. CALL LIGHT WITHIN REACH.
--- NOTE | 2021-07-03 23:05 | NUR ---
PATIENT IS RESTING WITH EYES CLOSED. BREATHING IS EVEN AND UNLABORED. CALL LIGHT WITHIN REACH.
--- NOTE | 2021-07-03 23:56 | NUR ---
PATIENT CALLED FOR ASSISTENCE TO RESTROOM. PATIENT JUST NEEDED THE BEDSIDE TABLE MOVED SO THAT SHE COULD REPOSTION AND ABBULATE INDEPENDENTLY TO RESTROOM. URINE HAT WAS DUMPED BY THIS STUDENT NURSE. PATIENT DENIES PAIN OR NAUSEA AT THIS TIME. ICE BAG AND ICE WATER REFILLED. PATIENT WAS OFFERED A WARM BLANKET BUT DENIED. NO OTHER NEEDS VOICED AT THIS TIME. CALL LIGHT WITHIN REACH.
--- NOTE | 2021-07-04 02:35 | NUR ---
PATIENT RESTING WITH EYES CLOSED. BREATHING EVEN AND UNLABORED. CALL LIGHT WITHIN REACH.
--- NOTE | 2021-07-04 04:54 | NUR ---
PATIENT WAS ALERT AND ORIENTED. VOICED NEED TO USE THE RESTROOM. VSS. PATIENT AMBULATES INDEPENDENTLY TO RESTROOM. PATIENT VOICED PAIN LEVEL 5-10. PAIN MEDS ADMINISTERED. ICE WATER AND ICE PACK REFILLED AND CRACKERS OFFERED. PATIENT DENIES NAUSEA. LUNG SOUNDS CLEAR AND BOWEL TONES THROUGHOUT X4. BREATHING IS EVEN AND UNLABORED. NO FURHTER NEEDS VOICED AT THIS TIME. CALL LIGHT WITHIN REACH.
--- NOTE | 2021-07-04 05:38 | NUR ---
TENDERNESS WITH PALPATIONS OF UPPER ABDOMEN. BOWEL TONES ARE ACTIVE THROUGHOUT X4. PATIENT HAS NOT HAD A BOWEL MOVEMENT SINCE 06/27/21 BUT WAS GIVEN COLACE. AMBULATES INDEPENDENTELY TO RESTROOM AND IN HALLS. PATIENT TOLERATING NORMAL DIET AND DENIES NAUSEA. BANDAGE OVER MARY SITE IN CLEAN DRY AND INTACT. MIDLINE INCISION STERI STRIPS ARE CLEAN DRY AND INTACT WITH NO REDNESS. PAIN MANAGEMENT WITH PO MEDS NEEDED EVERY THREE HOURS. PATIENT REFUSED USE OF SCD'S. PATIENT VOICED CONCERNED ABOUT DISCHARGE AND CARING FOR HERSELF. CRACKERS AND ICE WATER WERE PROVIDED. USES CALL LIGHT APPROPRIATELY.
--- NOTE | 2021-07-04 07:40 | NUR ---
report recieved from manager night RN, pt awake in bed plan for dc today, pain is now 3/10, call light within reach no other needs at the moment.
--- NOTE | 2021-07-04 08:13 | PATH ---
[facility] [address] [place], [place] [address] Signed SPECIMEN(S): A GALLBLADDER SPECIMEN(S): B APPENDIX SPECIMEN(S): C SEGMENT OF BOWEL WITH NARROWING SPECIMEN SOURCE: A. GALLBLADDER B. APPENDIX C. SEGMENT OF BOWEL WITH NARROWING CLINICAL HISTORY: Pre-op: Probable SBO. Cholecystitis. Narrowing of bowel. FINAL PATHOLOGIC DIAGNOSIS: A. Gallbladder, cholecystectomy: - Cholesterolosis. B. Appendix, appendectomy: - Focal endometriosis. C. Smal bowel, segmental resection: - Focal acute enteritis with underlying submucosal muscular hyperplasia. - Acute serositis with serosal edema. - Viable surgical margins. - No evidence of malignancy. COMMENT: Regarding specimen C: The bowel we received previously opened with a transmural defect. NAL:cml:C2NR MICROSCOPIC EXAMINATION: Histologic sections of all submitted blocks are examined by light microscopy. These findings, together with the gross examination, support the pathologic diagnosis. Regarding specimen B: The focus of endometriosis is confirmed by immunohistochemical stains (with appropriately staining controls). PAX8 highlights the endometrial glands and CD10 highlights the endometrial stroma. GROSS DESCRIPTION: Three specimens are received in three containers, labeled "JJ." A. The specimen, labeled "JJ, A," and designated on the requisition "gallbladder," is received in formalin and consists of PATIENT NAME: CARL ACEVEDO PATHOLOGY DATE OF : 69 REPORT #: [id number] PHYSICIAN: TUSHAR HASSAN PCP: OTHER PCP REPORT IS CONFIDENTIAL AND NOT TO BE RELEASED WITHOUT AUTHORIZATION [facility] [address], [place] [address] Signed Specimen: Previously incised gallbladder. Dimensions: Upon reconstruction, 9.2 x 2.7 x 2.2 cm. Serosa: Green, smooth, glistening. Cystic Duct: 0.5 cm in diameter, patent, and the margin is inked blue. Calculi: Absent within the specimen and specimen container. Mucosa: Green, velvety, glistening. Wall thickness: Uniform and 0.2 cm. Lymph node: No pericystic lymph nodes are grossly identified. Additional: None. Forgesmith sections are submitted in cassette (A1). B. The specimen, labeled "JJ, B," and designated on the requisition "appendix," is received in formalin and consists of Specimen: Appendix with mesoappendix. Dimensions: A 4.7 cm long, 0.7 cm diameter appendix with attached mesoappendix up to 1.2 cm wide. Serosa: Razo, smooth, glistening, and slightly variegated. Transmural Defect: Not grossly identified. Inking: The proximal appendix is surgically crimped closed and is inked black. Mucosa: Razo, grossly unremarkable. Fecalith: Not grossly identified. Additional: None. Forgesmith sections are submitted in cassette (B1). C. The specimen, labeled "JJ, C," and designated on the requisition "segment of bowel with narrowing," is received in formalin and consists of an unoriented, previously opened, 2.9 cm long, 2.8 cm in diameter, bowel segment with attached adipose tissue up to 1.2 cm wide. The specimen has a black suture centrally located on the serosal surface. The black suture is inked red. The previous opening/transmural defect extends from both ends longitudinally and is inked orange. The opening is without a discrete mass/lesion. One end is closed by a 4.6 cm long staple line which is removed and the underlying tissue is inked blue. The opposing end is closed by a 4.3 cm long staple line which is removed and the underlying tissue is inked black. The bowel serosa is razo, smooth, glistening, and without a discrete mass/lesion. The bowel mucosa is razo with usual folds and without a discrete mass/lesion. The attached adipose tissue is palpated for lymph nodes and no lymph nodes are grossly identified. Forgesmith sections are submitted as follows: PATIENT NAME: CARL ACEVEDO PATHOLOGY DATE OF : 69 REPORT #: [id number] PHYSICIAN: TUSHAR HASSAN PCP: OTHER PCP REPORT IS CONFIDENTIAL AND NOT TO BE RELEASED WITHOUT AUTHORIZATION [facility] [address], [place] [address] Signed (C1) - orange inked previous opening and client account representative section of mucosa (C2) - perpendicular sections of the black inked margin and section of red inked suture (C3) - perpendicular sections of the blue inked margin AI (under the direct supervision of a pathologist) The Gross Description was prepared using a voice recognition system. The report was reviewed for accuracy; however, sound-alike word errors, addition and/or deletions may occur. If there is any question about this report, please contact Client Services. ADDITIONAL NOTES: Immunohistochemical and/or in situ hybridization studies were performed on this case with the appropriate positive controls that react as expected. This test was developed and its performance characteristics determined by [facility]. It has not been cleared or approved by the U.S. Food and Drug Administration. The FDA has determined that such clearance or approval is not necessary. This test is used for clinical purposes. It should not be regarded as investigational or for research. [facility] is certified under the Clinical Laboratory Improvement Amendments of 1988 (CLIA) as qualified to perform high complexity clinical laboratory testing. This assay has not been validated for specimens that have been decalcified. The technical component was performed by [facility], [address] [place] [id number] (CLIA# [id number]). Professional interpretation was performed by [facility], [address] [place] [address] (CLIA# [id number]). PERFORMING LABORATORY: The technical component was performed by [facility], [address] [place] [id number] (CLIA# [id number]). Professional interpretation was performed by [facility], [address] [place] [address] (CLIA# [id number]). Diagnostician: Fiona Rea MD Pathologist Electronically Signed 07/04/2021 PATIENT NAME: CARL ACEVEDO PATHOLOGY DATE OF : 69 REPORT #: [id number] PHYSICIAN: TUSHAR HASSAN PCP: OTHER PCP REPORT IS CONFIDENTIAL AND NOT TO BE RELEASED WITHOUT AUTHORIZATION [place] [address] Signed Copies: ~ PATIENT NAME: KRISTINACARL Liz PATHOLOGY DATE OF : 69 REPORT #: [id number] PHYSICIAN: TUSHAR PATHOLOGY PCP: OTHER PCP REPORT IS CONFIDENTIAL AND NOT TO BE RELEASED WITHOUT AUTHORIZATION
--- NOTE | 2021-07-04 08:38 | NUR ---
MORNING MEDICATIONS DUE. THIS RN TO ROOM PER PTS PRIMARY RN'S REQUEST TO ASSIST WITH MEDICATION ADMINISTRATION. PT UP IN ROOM, INDEPENDANT AND STEADY ON FEET. PT USES RESTROOM INDEPENDANTLY AND THEN GETS UP TO CHAIR. PT REPORTS 4/10 ABDOMINAL PAIN AND DENIES NEED FOR ADDITONAL PAIN MEDICATION AT THIS TIME. ADDITIONAL ICE PACK PROVIDED. MEDICAITONS GIVEN (SEE MAR). PT UPDATED ON PLAN FOR DISCHARGE. PT DENIES ADDITIONAL REQUESTS OR COMPLAINTS. CALL LIGHT WITHIN REACH. PT REMAINS UP TO CHAIR. PTS PRIMARY RN UPDATED.
[2021-07-04] MEDS ORDERED: ACETAMINOPHEN-1 EAC1 PO (08:48)
--- NOTE | 2021-07-04 09:44 | NUR ---
RN IN ROOM TO DO MORNING ASSESMENT, PT COMPLAINING OF PAIN 5/10 PRN TYLENOL WITH CODINE GIVEN, PLAN FOR DC TODAY, WANTS TO SHOWER, NO OTHER NEEDS
--- NOTE | 2021-07-04 11:10 | NUR ---
PT UP WALKING IN HALLS WITH ROLY QUINTANILLA
--- NOTE | 2021-07-04 13:30 | NUR ---
NILDA IS SITTING IN CHAIR WATCHING TV. I&O AND VITALS ARE CHARTED. CALL LIGHT WITHIN REACH. NO FURTHER TASKS AT THIS TIME
--- NOTE | 2021-07-04 13:30 | NUR ---
RN IN ROOM TO GO OVER DC PAPER WORK, PT UP IN RECLINER WAITING ON RIDE, NO QUESTIONS
--- NOTE | 2021-07-04 13:48 | NUR ---
PT SITTING IN CHAIR, RECLINED. SHE SHARED WITH ME DHE WILL DC LATER TODAY. PLEASED WITH CARE, THANKED ME FOR VISITING. GAVE BLESSING AND WILL FOLLOW
--- NOTE | 2021-07-04 15:58 | NUR ---
RN IN ROOM TO GIVE PT PAIN MED PER REQUEST, WAITING ON RIDE TO GO HOME, MARIANNE REYNA IN ROOM VISITING
== END 2021-07-04 16:45 | disposition home or self-care (01) | DRG 329 ==
LOC: ED 10:20 → MS 17:18
PROVIDERS: ADMIT Surgery; ATTEND Surgery
PROC: 0DB80ZZ Excision of Small Intestine, Open Approach (ICD-10-PCS; 2021-06-27)
PROC: 0DTJ0ZZ Resection of Appendix, Open Approach (ICD-10-PCS; 2021-06-27)
PROC: 0W9G00Z Drainage of Peritoneal Cavity with Drainage Device, Open Approach (ICD-10-PCS; 2021-06-27)
PROC: 0FT40ZZ Resection of Gallbladder, Open Approach (ICD-10-PCS; principal; 2021-06-27 17:04)
DX: K56.600 Partial intestinal obstruction, unspecified as to cause (principal); K65.0 Generalized (acute) peritonitis; K81.0 Acute cholecystitis; Z68.41 Body mass index [BMI] 40.0-44.9, adult; K36 Other appendicitis; Z20.822 Contact with and (suspected) exposure to COVID-19; K81.1 Chronic cholecystitis; E66.01 Morbid (severe) obesity due to excess calories; Z98.84 Bariatric surgery status; Z88.5 Allergy status to narcotic agent; Z88.1 Allergy status to other antibiotic agents; Z79.899 Other long term (current) drug therapy; Z87.442 Personal history of urinary calculi
CPT/HCPCS: 00790; 36415; 74176; 74177; 76705; 80053; 81001; 83690; 85025; 87070; 87075; 87205; 94762; 96365; 96375; 99285-25; A9270; C9803; J0131; J1100; J1170; J1644; J1885; J2001; J2185; J2405; J2550; J2704; J3010; J7030; J7121; U0003

== ENCOUNTER 2023-10-09 00:15 | Emergency (ER) | payer OTHER ==
[~2023-10-09 00:15] MED LIST: ACETAMINOPHEN-1 EAC1 PO; AMLODIPINE BESYL5 MG PO; DULOXETINE HCL60 MG PO; OMEPRAZOLE40 MG PO; TOPIRAMATE25 MG PO
[2023-10-09 14:10] LABS: BASOPHILS 0.2 % (0-2); EOSINOPHILS 0.2 % (0-6); HEMATOCRIT 42.9 % (35.0-50.0); HEMOGLOBIN 13.7 g/dL (12.0-18.0); LYMPHOCYTES 5.6 % (24-44); MCH 25.5 (27-36); MCHC 31.9 g/dl (30-36); MCV 80.1 fl (81-99); MONOCYTES 3.7 % (0-12); NEUTROPHILS 90.3 % (39-80); PLATELET COUNT 379 K/uL (140-440); RBC 5.36 M/ul (4.3-5.7); RDW 14.7 (10.5-15.0)
[2023-10-09 14:13] LABS: BILIRUBIN, URINE NEGATIVE (negative); BLOOD/HGB, URINE NEGATIVE (Negative); KETONE, URINE NEGATIVE (Negative); LEUK ESTERASE, URINE NEGATIVE (negative); NITRITE, URINE NEGATIVE (negative); PH, URINE 6.5 (5-7)
[2023-10-09 14:14] LABS: AMPHETAMINES, URINE NEGATIVE (NEGATIVE); BARBITURATES, URINE NEGATIVE (NEGATIVE); BENZODIAZEPINE, URINE NEGATIVE (NEGATIVE); BUPRENORPHINE, URINE NEGATIVE (NEGATIVE); CANNABINOID, URINE NEGATIVE (NEGATIVE); COCAINE, URINE NEGATIVE (NEGATIVE); ECSTASY, URINE NEGATIVE (NEGATIVE); FENTANYL, URINE NEGATIVE (NEGATIVE); METHADONE, URINE NEGATIVE (NEGATIVE); OPIATES, URINE NEGATIVE (NEGATIVE); OXYCODONE, URINE NEGATIVE (NEGATIVE); PHENCYCLIDINE, URINE NEGATIVE (NEGATIVE)
[2023-10-09 14:16] LABS: ALBUMIN 4.1 g/dL (3.4-5.0); ALBUMIN/GLOBULIN RATIO 0.93 (1.1-2.4); ANION GAP 14.1 (7-21); BILIRUBIN, TOTAL 0.4 ng/dL (0.2-1.0); BUN/CREATININE RATIO 13.51 (6.0-28.6); CALCIUM 9.5 mg/dL (8.5-10.1); CREATININE, SERUM 1.11 mg/dL (0.55-1.02); POTASSIUM 4.1 mmol/L (3.5-5.1); PROTEIN, TOTAL 8.5 g/dL (6.4-8.2)
[2023-10-09] MEDS ORDERED: ONDANSETRON 4 MG HOME.PACK SL ONE (17:15)
== END 2023-10-09 04:30 | disposition home or self-care (01) ==
LOC: ED 00:15
DX: K52.9 Noninfective gastroenteritis and colitis, unspecified (principal); Z88.1 Allergy status to other antibiotic agents; Z88.5 Allergy status to narcotic agent; Z79.899 Other long term (current) drug therapy
CPT/HCPCS: 36415; 71045; 74177; 80053; 80307; 81003; 83605; 83690; 84703; 85025; 85060; 99284-25